=== PATIENT | female | born 1985 | race Caucasian/White ===

== ENCOUNTER 2020-11-21 20:10 | Emergency (ER) | payer SELFPAY ==
[~2020-11-21] VITALS: Ht 177.8 cm; Wt 81.8 kg
[~2020-11-21 20:10] MED LIST: CIPRO 500MG TA500 MG PO; NO HOME MEDICATIONS; NORCO 325 MG-51 TAB PO; PREDNISONE10 MG PO; ZOFRAN 4MG T4 MG/TAB PO
[2020-11-21 22:46] VITALS: BP 127/75; PULSE 68; TEMP 97.8
[2020-11-21] MEDS ORDERED: TYLENOL 325MG325 MG PO (23:48)
[2020-11-21] MEDS ORDERED: ROXICODONE 55 MG/TAB PO (23:48)
== END 2020-11-21 23:55 | disposition home or self-care (01) ==
LOC: COL.ER 20:10
DX: S52.125A Nondisplaced fracture of head of left radius, initial encounter for closed fracture (principal); M54.5 Low back pain; M25.552 Pain in left hip; Z79.52 Long term (current) use of systemic steroids; W11.XXXA Fall on and from ladder, initial encounter